=== PATIENT | female | born 1995 | race African-American/Black ===

== ENCOUNTER 2018-05-16 11:25 | Inpatient (IN) ==
[2018-05-16] MEDS ORDERED: CITRIC ACID/SODIUM CITRATE 30 ML UDCUP PO ONE (11:45)
[2018-05-16] MEDS ORDERED: ceFAZolin 2,000 MG in PREMIX 1 EACH IV ONE (11:45)
[2018-05-16] MEDS ORDERED: FAMOTIDINE 20 MG/2 ML VIAL IV ONE (11:45)
[2018-05-16] MEDS ORDERED: OXYTOCIN/LR 20 UNIT/1,000 ML BAG IV ONE ×2 (11:47→17:08)
[2018-05-16] MEDS: LACTATED RINGERS 1,000 ML IV SCH (12:08)
[2018-05-16 12:21] LABS: Basophils % 0.2 % (0.0-0.8); Eosinophils # 0.2 10*3/uL (0.0-0.87); Hematocrit 35.7 VOL% (35.7-47.0); Hemoglobin 11.6 GM/DL (12.0-16.0); Immature Granulocytes Absolute 0.14 #; Lymphocytes # 2.3 10*3/uL (1.4-4.0); Mean Corpuscular HGB Conc 32.5 GM/DL (32-36); Mean Corpuscular Hemoglobin 32 PG (27-34); Mean Corpuscular Volume 97.3 FL (87-102); Mean Platelet Volume 9.8 FL (9.6-12.0); Monocytes # 1.1 10*3/uL (0.11-0.8); Monocytes % 7.7 % (1.7-12.7); Neutrophils # 10.8 10*3/uL (1.4-7.4); Neutrophils % 74.1 % (38.7-73.9); Platelet Count 193 T/CUMM (130-400); Red Blood Count 3.67 MC/CUMM (3.8-5.5); Red Cell Distribution Width 12.9 % (9.3-17.3); White Blood Count 14.6 T/CUMM (4-12)
[2018-05-16] MEDS ORDERED: diphenhydrAMINE 50 MG/1 ML VIAL IV PRN ×2 (12:35)
[2018-05-16] MEDS ORDERED: LACTATED RINGERS 1,000 ML IV ONE (12:35)
[2018-05-16] MEDS ORDERED: hydrOXYzine HCL 25 MG/1 ML VIAL IM PRN (12:35)
[2018-05-16] MEDS ORDERED: ePHEDrine 50 MG/ML AMP IV PRN (12:35)
[2018-05-16] MEDS ORDERED: PROMETHAZINE 25 MG/1 ML VIAL IM ONE (12:35)
[2018-05-16 12:37] LABS: Albumin 2.6 G/DL (3.4-5.0); Bilirubin,Total 0.9 MG/DL (0.2-1.0); Calcium 8.9 MG/DL (8.5-10.1); Potassium 3.6 MMOL/L (3.5-5.1)
[2018-05-16] MEDS ORDERED: AMPICILLIN 2,000 MG VIAL ONE (12:38)
[2018-05-16] MEDS ORDERED: SODIUM CHLORIDE 0.9% 100 ML IV ONE (12:39)
[2018-05-16] MEDS ORDERED: AMPICILLIN INJ 2,000 MG in SODIUM CHLORIDE 0.9% 100 ML IV ONE (12:41)
[2018-05-16] MEDS ORDERED: fentaNYL 2 MCG/ROPIV 0.2% EPID 150 ML EPIDURAL SCH (13:00)
[2018-05-16] MEDS ORDERED: miSOPROStol 200 MCG TABLET ONE (13:28)
[2018-05-16] MEDS ORDERED: LIDOCAINE 1% 50 ML VIAL ONE (13:28)
[2018-05-16] MEDS ORDERED: MICROFIBRILLAR COLLAGEN POWDER 1 GM CAN TOP ONE (16:11)
[2018-05-16 16:41] LABS: Cord Arterial Blood HCO3 18.1 MMOL/L
[2018-05-16 16:42] LABS: Cord Venous Blood HCO3 22.9 MMOL/L; Cord Venous Blood PCO2 51.3 MMHG; Cord Venous Blood PO2 25.8 MMHG
[2018-05-16] MEDS ORDERED: RHO(D) IMMUNE GLOBULIN 300 MCG SYRINGE IM ONE (17:08)
[2018-05-16] MEDS ORDERED: ACETAMINOPHEN 325 MG TABLET PO PRN (17:08)
[2018-05-16] MEDS ORDERED: ONDANSETRON 4 MG/2 ML VIAL IV PRN (17:08)
[2018-05-16] MEDS ORDERED: oxyCODONE/ACETAMINOPHEN 5-325 MG TABLET PO PRN (17:10)
[2018-05-16] MEDS ORDERED: fentaNYL 100 MCG/2 ML VIAL ONE (17:20)
[2018-05-16] MEDS ORDERED: PHENYLEPHRINE 1 MG/10 ML SYRINGE IV ONE (17:20)
[2018-05-16] MEDS ORDERED: MIDAZOLAM 2 MG/2 ML VIAL ONE (17:21)
[2018-05-16] MEDS ORDERED: MORPHINE 10 MG/10 ML VIAL ONE (17:21)
[2018-05-16] MEDS ORDERED: PROPOFOL 200 MG/20 ML VIAL IV ONE (17:22)
[2018-05-16] MEDS ORDERED: SUCCINYLCHOLINE 200 MG/10 ML VIAL ONE (17:26)
[2018-05-16] MEDS ORDERED: ROPIVACAINE 0.5% 30 ML VIAL ONE (17:27)
[2018-05-16] MEDS ORDERED: LACTATED RINGERS 1,000 ML IV SCH (17:30)
[2018-05-16 18:08] LABS: Apearance,Urine CLEAR (Clear); Bilirubin,Urine Negative (Negative); Blood, Urine Moderate mg/dL (Negative); Glucose,Urine (UA) Negative (Negative); Ketones,Urine 20 mg/dL (Negative); Nitrite,Urine Negative (Negative); Protein,Urine Negative; RBC,Urine 4 /HPF (0-4); Urine Color Straw (Yellow); Urine Specific Gravity 1.005 (1.001-1.035); Urine Urobilinogen < 2.0 EU/DL (0.2-1.0); WBC,Urine 2 /HPF (0-6)
[2018-05-16] MEDS: IBUPROFEN 800 MG TABLET PO PRN (19:45)
[2018-05-17 03:22] LABS: Basophils # 0.1 10*3/uL (0.0-0.2); Basophils % 0.3 % (0.0-0.8); Eosinophils # 0.1 10*3/uL (0.0-0.87); Eosinophils % 0.2 % (0.00-10.9); Hematocrit 28.1 VOL% (35.7-47.0); Hemoglobin 9.3 GM/DL (12.0-16.0); Immature Granulocytes % 0.8 %; Immature Granulocytes Absolute 0.19 #; Lymphocytes # 1.4 10*3/uL (1.4-4.0); Lymphocytes % 5.6 % (21.3-54.2); Mean Corpuscular HGB Conc 33.1 GM/DL (32-36); Mean Corpuscular Hemoglobin 32 PG (27-34); Mean Corpuscular Volume 95.6 FL (87-102); Mean Platelet Volume 10.5 FL (9.6-12.0); Monocytes % 8.3 % (1.7-12.7); Neutrophils # 20.3 10*3/uL (1.4-7.4); Neutrophils % 84.8 % (38.7-73.9); Platelet Count 163 T/CUMM (130-400); Red Blood Count 2.94 MC/CUMM (3.8-5.5); Red Cell Distribution Width 13.1 % (9.3-17.3)
[2018-05-17 04:17] LABS: Band Neutrophils 3 % (0-10); Lymphocytes 6 % (20-55); Segmented Neutrophils 86 % (50-85)
[2018-05-17 04:18] LABS: Platelet Estimate Normal; Total Cells Counted 100
[2018-05-17] MEDS: DOCUSATE SODIUM 100 MG CAPSULE PO SCH ×3 (05:51→22:19)
[2018-05-17] MEDS: LACTATED RINGERS 1,000 ML IV SCH (06:15)
[2018-05-17] MEDS: IBUPROFEN 800 MG TABLET PO PRN ×2 (08:58→19:10)
[2018-05-17] MEDS: MULTIVITAMIN (PRENATAL) TABLET PO SCH (08:59)
[2018-05-17] MEDS: SIMETHICONE CHEW 80 MG TABLET PO PRN ×2 (08:59→22:19)
[2018-05-17] MEDS: MAGNESIUM HYDROXIDE SUSP 30 ML UDCUP PO PRN ×2 (08:59→22:19)
[2018-05-17] MEDS ORDERED: ceFAZolin 1,000 MG in SYRINGE 1 EACH IV ONE (09:00)
[2018-05-17] MEDS ORDERED: HYDROCORTISONE 1% CREAM 28 GM TUBE TOP PRN (13:02)
[2018-05-17] MEDS: oxyCODONE/ACETAMINOPHEN 5-325 MG TABLET PO PRN (19:16)
[2018-05-17] MEDS: FERROUS SULFATE 325 MG TABLET PO SCH (22:19)
[2018-05-18] MEDS: IBUPROFEN 800 MG TABLET PO PRN ×2 (06:13→14:15)
[2018-05-18 08:24] VITALS: BP 109/70
[2018-05-18] MEDS: DOCUSATE SODIUM 100 MG CAPSULE PO SCH (09:15)
[2018-05-18] MEDS: FERROUS SULFATE 325 MG TABLET PO SCH (09:15)
[2018-05-18] MEDS: MAGNESIUM HYDROXIDE SUSP 30 ML UDCUP PO PRN (09:15)
[2018-05-18] MEDS: SIMETHICONE CHEW 80 MG TABLET PO PRN (09:15)
[2018-05-18] MEDS: MULTIVITAMIN (PRENATAL) TABLET PO SCH (09:15)
[2018-05-18] MEDS: oxyCODONE/ACETAMINOPHEN 5-325 MG TABLET PO PRN (14:17)
== END 2018-05-18 16:50 | disposition home or self-care (01) | DRG 540 ==
LOC: N.LDOUT 11:25 → N.LD 11:27 → N.OB 20:30
PROVIDERS: ADMIT Obstetrics & Gynecology; ATTEND Obstetrics & Gynecology
PROC: LDCSECT (ICD-10-PCS; 2018-05-16 15:30)